=== PATIENT | male | born 1955 | race Caucasian/White ===

== ENCOUNTER 2021-11-25 10:45 | Emergency (ER) | payer MEDICARE, OTHER, SELFPAY ==
[2021-11-25] VITALS (7 sets, daily range): BP systolic 114–140; BP diastolic 70–78; PULSE 63–80; RESP 14–20; TEMP 36.9; O2SAT 94–99; BMI 27.6
--- NOTE | 2021-11-25 11:11 | DI.RAD.S_ITS ---
PROCEDURE: XR CHEST 1V INDICATIONS: chest pain TECHNIQUE: One view of the chest was acquired. COMPARISON: None. FINDINGS: Surgical changes and devices: None. Lungs and pleura: Lungs are clear. No pleural effusions or pneumothorax. Mediastinum: Mediastinal contours appear normal. Heart size is normal. Bones and chest wall: No suspicious bony lesions. Overlying soft tissues appear unremarkable. IMPRESSION: No acute cardiopulmonary process demonstrated radiographically. Dictated by: Rick Kitchen M.D. on 11/25/2021 at 11:50 Approved by: Rick Kitchen M.D. on 11/25/2021 at 11:50
[2021-11-25 11:31] LABS: Add Manual Diff / Slide Review NO; Basophils Absolute Auto 0 /uL (0-100); Basophils Percent Auto 0.5 % (0-2); Eosinophils Absolute Auto 0 /uL (0-450); Eosinophils Percent Auto 0.4 % (2-4); Hematocrit 44.7 % (41-53); Hemoglobin 15.5 g/dL (13.5-17.5); Lymphocytes Absolute Auto 1900 /uL (1100-4500); Lymphocytes Percent Auto 38.4 % (25-40); Mean Corpuscular HGB Conc 34.6 % (30-36); Mean Corpuscular Hemoglobin 32.7 PG (26-34); Mean Corpuscular Volume 94.4 fL (80-100); Monocytes Absolute Auto 500 /uL (0-900); Monocytes Percent Auto 10.2 % (3-14); Neutrophils Absolute Auto 2500 /uL (1500-7000); Neutrophils Percent Auto 50.5 % (50-75); Platelet Count 200 X10^3/uL (150-400); Red Blood Cell Count 4.74 X10^6/uL (4.5-5.9); Red Cell Distribution Width 13.2 % (11.6-14.8)
[2021-11-25 11:33] LABS: Prothrombin Time 11.4 SECONDS (10.1-12.7)
[2021-11-25 11:36] LABS: PTT Partial Thromboplastin Tim 43 SECONDS (26.4-36.2)
[2021-11-25 11:39] LABS: Alanine Aminotransferase 36 IU/L (<50); Albumin 4.6 g/dL (3.5-5.0); Albumin Globulin Ratio 1.3 (1.0-2.8); Alkaline Phosphatase 74 U/L (38-126); Aspartate Aminotransferase 37 IU/L (17-59); BUN Creatinine Ratio 19.1 (6-22); Bilirubin Total 0.5 mg/dL (0.2-1.3); Blood Urea Nitrogen 18 mg/dL (9-20); Calcium 9.6 mg/dL (8.4-10.2); Carbon Dioxide 29 mmol/L (22-32); Chloride 103 mmol/L (98-107); Creatine Kinase 91 U/L (55-170); Estimated Glomerular Filt Rate > 60 mL/min (>60); Globulin 3.6 g/dL (1.7-4.1); Glucose 122 mg/dL (80-110); HEMOLYSIS < 15 (0-50); Lipase 87 U/L (23-300); Magnesium 2.4 mg/dL (1.6-2.3); Potassium 3.8 mmol/L (3.4-5.1); Sodium 138 mmol/L (137-145); Total Protein 8.2 g/dL (6.3-8.2)
[2021-11-25 11:50] LABS: Troponin I 0.016 ng/mL (0.01-0.034)
--- NOTE | 2021-11-25 12:12 | ED_ITS ---
HPI - Arrhythmia/Palpitations General Chief Complaint: Arrhythmia/Palpitations Stated Complaint: heart palpitations Time Seen by Provider: 11/25/21 12:06 Source: patient and family (spouse) Mode of arrival: Ambulatory Limitations: no limitations History of Present Illness HPI narrative: This is a 66-year-old male who comes emergency department with complaint of irregular heartbeat over the last evening. Patient has had occasional episodes that are short, no feel irregular had always fast health feel like there is some pounding in his chest. He has a little fatigued but has not had any chest pain or pressure, no shortness of breath. Occasional mild nausea. No diaphoresis. With his heart was pounding he felt a little lightheaded but has not had syncope. No swelling in his extremities no issues such as diarrhea constipation. No urinary issues. He has not had similar symptoms in the past. He is on statin daily, he takes naloxone as needed for alcohol abuse, clear to in an aspirin 81 mg. No tobacco, he was drinking 4-5 drinks nightly and states that was weeks to months ago but has decreased he had 1 alcoholic drink last night after he had nalaxone. The episode of palpitations occurred before he had his naloxone. He does not use any illicit. His primary care was Donte Zhou on [place] who has left the area. He is accompanied by his today. Related Data Previous Rx's Medication Instructions Recorded Fluticasone Propionate (FLONASE) 2 spray intranasal QDAY ##3 03/30/12 clobetasol 0.05 % topical ointment 0.05 % topical QDAY ##15 02/18/13 Allergies Allergy/AdvReac Type Severity Reaction Status Date / Time YELLOW JACKET Allergy Severe ANAPHLAXSIS Uncoded 09/23/17 11:46 ,HIVES Review of Systems Review of Systems ROS Unobtainable: All systems reviewed & are unremarkable except as noted in HPI and below Patient History alcohol intake frequency: a few times a week Substance Use Type: does not use Exam Narrative Exam Narrative: GENERAL: Alert and oriented x three, well-appearing male in mild distress. HEENT: Head normocephalic, atraumatic, EOMI, pupils reactive, face symmetric, moist mucous membranes NECK: Supple, full range of motion CARDIOVASCULAR: Regular rate and rhythm without murmurs, rubs or gallops. No JVD. RESPIRATORY: Breath sounds equal bilaterally, no wheezes rales or rhonchi. ABDOMEN: Soft, nontender. Normoactive bowel sounds all 4 quadrants. No guarding or rebound, rigidity, no mass : No CVA tenderness EXTREMITIES: Normal range of motion, no clubbing or edema. Neurovascularly intact NEUROLOGICAL: Cranial nerves II through XII grossly intact. Moving all extremities SKIN: Warm, dry, no petechiae, no rashes or lesions. Initial Vital Signs Initial Vital Signs: Vital Signs Pulse Rate 69 11/25/21 10:57 Respiratory Rate 15 11/25/21 10:57 Pulse Oximetry 98 11/25/21 10:57 Course Orders Ordered: ED Orders 11/25/21 11:02 Complete Blood Count AUTO DIFF Stat Comprehensive Metabolic Panel Stat Lipase Stat Magnesium Stat Partial Thromboplastin Time Stat Prothrombin Time INR Stat Troponin & CK Cardiac Panel Stat 11/25/21 11:11 XR chest 1V Stat Vital Signs Vital signs: Vital Signs - 8 hr 11/25/21 12:49 Pulse Rate 80 Respiratory Rate 18 Blood Pressure 118/74 Pulse Oximetry 99 Oxygen Delivery Method Room Air MDM - Arrhythmia/Palpitations Lab Data Result diagrams: 11/25/21 11:02 11/25/21 11:02 Labs: Lab Results 11/25/21 11/25/21 11/25/21 Range/Units 11:02 11:02 11:02 WBC 5.0 (4.5-11.0) X10^3/uL RBC 4.74 (4.5-5.9) X10^6/uL Hgb 15.5 (13.5-17.5) g/dL Hct 44.7 (41-53) % MCV 94.4 (80-100) fL MCH 32.7 (26-34) PG MCHC 34.6 (30-36) % RDW 13.2 (11.6-14.8) % Plt Count 200 (150-400) X10^3/uL Neut % (Auto) 50.5 (50-75) % Lymph % (Auto) 38.4 (25-40) % [place] % (Auto) 10.2 (3-14) % Eos % (Auto) 0.4 L (2-4) % Baso % (Auto) 0.5 (0-2) % Neut # (Auto) 2500 (7161-8282) /uL Lymph # (Auto) 1900 (5740-0669) /uL [place] # (Auto) 500 (0-900) /uL Eos # (Auto) 0 (0-450) /uL Baso # (Auto) 0 (0-100) /uL PT 11.4 (10.1-12.7) SECONDS INR 1.0 (0.9-1.3) APTT 43 H (26.4-36.2) SECONDS Sodium 138 (137-145) mmol/L Potassium 3.8 (3.4-5.1) mmol/L Chloride 103 (98-107) mmol/L Carbon Dioxide 29 (22-32) mmol/L BUN 18 (9-20) mg/dL Creatinine 0.94 (0.66-1.25) mg/dL Estimated GFR > 60 (>60) mL/min BUN/Creatinine Ratio 19.1 (6-22) Glucose 122 H (80-110) mg/dL Calcium 9.6 (8.4-10.2) mg/dL Magnesium 2.4 H (1.6-2.3) mg/dL Total Bilirubin 0.5 (0.2-1.3) mg/dL AST 37 (17-59) IU/L ALT 36 (<50) IU/L Alkaline Phosphatase 74 (38-126) U/L Total Creatine Kinase 91 (55-170) U/L CK-MB (CK-2) TNP CK-MB (CK-2) Rel Index TNP Troponin I 0.016 (0.01-0.034) ng/mL Total Protein 8.2 (6.3-8.2) g/dL Albumin 4.6 (3.5-5.0) g/dL Globulin 3.6 (1.7-4.1) g/dL Albumin/Globulin Ratio 1.3 (1.0-2.8) Lipase 87 (23-300) U/L Imaging Data Chest x-ray: Radiologist's Impresson: [address] [id number] XRay Report Signed Patient: Rory Shepard MR#: [id number] : 1955 Acct:[id number] Age/Sex: 66 / M Date of Service: 11/25/21 Loc: ED Accession Number: [id number] ?? Procedure: XR chest 1V Ordering Provider: Trinity Saenz D.O. PROCEDURE:? XR CHEST 1V ? INDICATIONS:? chest pain ? TECHNIQUE:? One view of the chest was acquired.? ? COMPARISON:? None. ? FINDINGS:? ? Surgical changes and devices:? None.? ? Lungs and pleura:? Lungs are clear.? No pleural effusions or pneumothorax.? ? Mediastinum:? Mediastinal contours appear normal.? Heart size is normal.? ? Bones and chest wall:? No suspicious bony lesions.? Overlying soft tissues a ppear unremarkable.? ? IMPRESSION:? No acute cardiopulmonary process demonstrated radiographically. ? ? Dictated by: Rick Kitchen M.D. on 11/25/2021 at 11:50 ? ? Approved by: Rick Kitchen M.D. on 11/25/2021 at 11:50?? ECG Data Attestation: I personally reviewed and interpreted this ECG as follows: Interpretation: EKG shows sinus rhythm rate of 60 9p are 136 QRS of 94 QTC of 430. No acute ST elevation depression noted. MDM Narrative Medical decision making narrative: This is a 66-year-old male who comes emergency department with episode of irregular heartbeat palpitations at home they have not been persistent they were not captured here except for some PVCs. He has not had any red flag symptoms such as chest pain, shortness of breath or syncope. Labs do not show any major abnormalities, EKG is reassuring, chest x-ray is clear. Discussed having patient follow-up with a Holter or ZIO patch his primary care left [place] recently so given options locally for primary care as well as cardiology follow- up to help facilitate. Because of the remote location a [facility] [place] option was also included or they could reach out to their local back up machine operator for EKG if he has recurrent episodes. Patient patient is on naloxone as needed, this could possibly contribute although he has taken it for the past 6 months without issue before. He is on a statin but no other medications for rate control but would not add any on today. Discharge Plan Departure Patient Disposition: Home Clinical Impression: Palpitations Instructions: DI for Arrhythmias Activity Restrictions/Additional Instructions: Follow-up, include is an option for primary care follow-up but also Cardiology to help facilitate being seen sooner. Referral is included below. You can call [phone] for the call center to help find you options for primary care locally. I think you would benefit from having a Holter monitor or ZIO patch. Your telemetry today showed a few PVCs or extra beats but no cardiac arrhythmias otherwise. In the meantime there is a device called the cardiac which you can use in conjunction with your phone that can give you idea of the rhythm or rhythm changes if they are persisting. [email or web address] Please continue home medications as prescribed. Please return for new or worsening symptoms, increasing frequency of irregular heartbeat, tachycardia, chest pain or pressure, shortness of breath, passing out or other new or concerning symptoms. Prescriptions: No Action Fluticasone Propionate (FLONASE) 2 spray Intranasal QDAY Qty: 3 3RF clobetasol 0.05 % ointment 0.05 % Topical QDAY Qty: 15 1RF Referrals: Tiffany Trujillo MD [Physician] - Ney Zhou MD [Primary Care Provider] - Visit Report Forms: Patient Portal/API
== END 2021-11-25 12:50 | disposition home or self-care (01) ==
PROVIDERS: Emergency Provider Emergency Medicine; PCP Family Medicine
DX: R00.2 Palpitations (principal); R07.9 Chest pain, unspecified
CPT/HCPCS: 36415; 71045; 80053; 82550; 83690; 83735; 84484; 85025; 85610; 85730; 93005; 93010; 99284